=== PATIENT | male | born 1960 | race Caucasian/White ===

== ENCOUNTER → 2020-05-29 | Outpatient (REF) | payer BC | LOC: M SMT 12:40 | PROVIDERS: ATTEND Nurse Practitioner Family | DX: N39.0 Urinary tract infection, site not specified (principal) ==

== ENCOUNTER → 2020-06-18 | Outpatient (CLI) | payer BC ==
--- NOTE | 2020-06-18 10:56 | REPPI ---
INDICATION: ELEVATED PSA. COMPARISON: None. TECHNIQUE: Transrectal prostate ultrasound performed. FINDINGS: Prostate measures 4.1 x 3.1 x 5.0 cm, total volume 33.2 mL. Echotexture is diffusely heterogeneous. Tiny cysts and calcifications are noted. No focal mass is seen. Seminal vesicles are symmetrical. IMPRESSION: Ultrasound guidance was provided for Dr. Booker who performed ultrasound-guided biopsy of the prostate. <Electronically signed by Kashif Marie > 06/18/20 [id number]
== END ==
LOC: M SMT PRO 09:18
PROVIDERS: ATTEND Urology
DX: C61 Malignant neoplasm of prostate (principal)
CPT/HCPCS: 76872; G0416

== ENCOUNTER → 2020-07-09 | Outpatient (CLI) | payer BC ==
[~2020-07-09] MED LIST: ISOVUE-370 76% 100ML VIAL As Ordered ONE
--- NOTE | 2020-07-09 09:52 | REP ---
INDICATION: PROSTATE CANCER. COMPARISON: None. TECHNIQUE: CT of the abdomen and pelvis with IV contrast during the arterial phase of enhancement followed by CT of the abdomen, pelvis not included, during the delayed renal excretion phase of enhancement. FINDINGS: The visualized lung [place] are unremarkable. The liver is less dense than the spleen compatible with hepato steatosis. There are no focal hepatic masses or cysts. The gallbladder, pancreas and spleen are normal size and unremarkable. The adrenals are unremarkable. There is no hydronephrosis. There are no renal cysts or masses. No calculi. No perinephric stranding. The kidneys are unremarkable. The abdominal aorta is unremarkable. There is no periaortic lymph node enlargement or mass. There are scattered normal size nodes. The bowel and mesentery are unremarkable except for proximal sigmoid colon diverticulosis without diverticulitis. Pelvis: The appendix is unremarkable. The prostate and bladder are unremarkable by CT. The bladder is not distended. There is no free fluid. There is no pelvic adenopathy. There are no lytic, blastic or destructive skeletal changes. There is degenerative disc disease throughout the lumbar spine. IMPRESSION: There is no evidence of ascites, adenopathy or metastatic disease. Hepato steatosis. There is no hydronephrosis. The bladder is not distended. Otherwise, negative CT of the abdomen and pelvis. <Electronically signed by Kashif Rai > 07/09/20 [id number]
== END ==
LOC: M RAD 08:17
PROVIDERS: ATTEND Urology
DX: C61 Malignant neoplasm of prostate (principal); K76.0 Fatty (change of) liver, not elsewhere classified
CPT/HCPCS: 74177; Q9967

== ENCOUNTER → 2020-07-10 | Outpatient (CLI) | payer BC ==
--- NOTE | 2020-07-10 14:24 | REP ---
INDICATION: PROSTATE CA. COMPARISON: None. TECHNIQUE/RADIOTRACER AND DOSE: Following the intravenous administration of 21.3 mCi technetium 99 M MDP, patient's whole-body is imaged in various projections. FINDINGS: There is mild arthritic uptake at the shoulders bilaterally. There also appears to be mild to moderate arthritic uptake in the lower cervical spine. There is mild arthritic uptake at the base of the right 1st toe. There is no compelling scintigraphic evidence of osseous metastases. Renal and bladder activity are seen. IMPRESSION: No compelling scintigraphic evidence of osseous metastases. <Electronically signed by Kashif Marie > 07/10/20 [id number]
== END ==
LOC: M RAD 10:29
PROVIDERS: ATTEND Urology
DX: C61 Malignant neoplasm of prostate (principal)
CPT/HCPCS: 78306; A9503

== ENCOUNTER 2020-08-20 11:35 | Inpatient (IN) | payer BC ==
[~2020-08-20] VITALS: Ht 180.3 cm; Wt 109.2 kg
[~2020-08-20 11:35] MED LIST changes: +ALLE180T33 PO; +CO Q200C10 PO; +FISH1000 PO; +HEPARIN SOD (PORCINE) 5000UNITS/ML 1ML VIAL/SYRINGE SQ ONE; -ISOVUE-370 76% 100ML VIAL As Ordered ONE; +LIDOCAINE 2% 100MG/5ML SDV (FOR ANES.) As Ordered ONE; +LOSA50TA88 PO; +LR 1,000 ML IV ONE; +METOCLOPRAMIDE INJ 10MG/2ML VIAL (J2765 PER 1) As Ordered ONE; +MIDAZOLAM INJ 2MG/2ML VIAL (J2250 PER 1MG) As Ordered ONE; +MULTTAB86 PO; +ONDANSETRON 4MG/2ML VIAL As Ordered ONE; +ROCURONIUM BROMIDE 50 MG/5 ML VIAL As Ordered ONE; +TRIA37.53 PO; +[UNRECOGNIZED DRUG - REMARK] PO; +ceFAZolin SOD 2 GM in IV 1 EA IV ONE; +fentaNYL 100 MCG/2 ML INJECTION (J3010) As Ordered ONE; +propofoL 200 MG/20 ML VIAL As Ordered ONE
[2020-08-20] MEDS ORDERED: LIDOCAINE 1% SDV 30ML VIAL As Ordered ONE (12:08)
[2020-08-20] MEDS ORDERED: BUPIVACAINE HCL 0.25% 30ML VIAL As Ordered ONE (12:08)
[2020-08-20] MEDS ORDERED: fentaNYL 100 MCG/2 ML INJECTION (J3010) As Ordered ONE (12:59)
[2020-08-20] MEDS ORDERED: ROCURONIUM BROMIDE 50 MG/5 ML VIAL As Ordered ONE ×2 (14:10→15:08)
[2020-08-20] MEDS ORDERED: ACETAMINOPHEN 1000MG 100ML IV BTL (OFIRMEV) (J0131 PER 10MG) As Ordered ONE (14:10)
[2020-08-20] MEDS ORDERED: dexameTHASONE 4 MG/ML 1ML VIAL (J1100 PER 1MG) As Ordered ONE (14:10)
[2020-08-20] MEDS ORDERED: HYDROmorphone HCL 2 MG/ML 1ML VIAL (J1170) As Ordered ONE (14:11)
[2020-08-20] MEDS ORDERED: SUGAMMADEX SODIUM 500 MG/5 ML VIAL (BRIDION) As Ordered ONE (15:39)
[2020-08-20] MEDS ORDERED: ONDANSETRON 4MG/2ML VIAL As Ordered ONE (15:40)
[2020-08-20] MEDS ORDERED: ceFAZolin 2 GM/D5W 50 ML IV BAG (J0690 PER 500MG) As Ordered ONE (15:57)
[2020-08-20] MEDS ORDERED: MORPHINE 2 MG/ML 1ML VIAL (J2270) IV PRN ×2 (17:30→17:35)
[2020-08-20] MEDS ORDERED: ONDANSETRON 4MG/2ML VIAL IV PRN ×2 (17:30→17:35)
[2020-08-20] MEDS ORDERED: oxyCODONE 5MG TAB PO PRN (17:30)
[2020-08-20] MEDS ORDERED: LR 1,000 ML IV SCH (17:30)
[2020-08-20] MEDS ORDERED: NS 1,000 ML IV SCH (17:35)
[2020-08-20] MEDS ORDERED: PERCOCET 5MG/325MG TAB PO PRN ×2 (17:35)
[2020-08-20] MEDS: fentaNYL 100 MCG/2 ML INJECTION (J3010) IV PRN ×4 (17:42→18:11)
--- NOTE | 2020-08-20 17:52 | ROOPDOC ---
[facility] Report Of Operation Report of Operation DATE OF PROCEDURE: 08/20/20 PREPROCEDURE DIAGNOSES: Prostate Cancer. POSTPROCEDURE DIAGNOSES: Prostate Cancer. PROCEDURE: Robotic-assisted Laparoscopic Radical Prostatectomy with Bilateral Pelvic Lymph Node Dissection. SURGEON: Paige Gramajo MD MANAGER SERVICE DESK: Loretta Hauser NP ANESTHESIA: General. OPERATIVE INDICATIONS: This is a 60 year old male with intermediate risk clinical T1c [place] 4+3 prostate cancer, here today for the above procedure for treatment. DESCRIPTION OF PROCEDURE: The patient was brought to the operating room and general anesthesia was induced. Prophylactic antibiotics were infused. He was then placed in the supine position and prepped and draped in the usual sterile fashion. At this point, a Choi catheter was inserted into the bladder and the balloon was filled with 10 mL of sterile water. We then made a midline incision just above the umbilicus for an 8 mm port. A Veress needle was utilized to achieve pneumoperitoneum. Next, an 8 mm port was inserted into the incision and subsequently a camera was inserted. There were no injuries from the Veress needle or initial trocar placement. Then three robotic ports were placed in the usual configuration in line just below the level of the umbilicus. A 12 mm assistant account manager port was placed just lateral and at the level of the umbilicus. Once all the ports were placed, the robot was docked. Lysis of adhesions between the sigmoid colon and abdominal wall was then performed. Next, the bladder was then released from the anterior abdominal wall using electrocautery. Once the bladder was dropped, the fat overlying the prostate was cleared using electrocautery. The superficial dorsal vein was controlled with electrocautery. The endopelvic fascia was opened on both sides and the dorsal venous complex was cleared. Next, a #0 Vicryl [id number] stitch was placed around the dorsal venous complex. Once that was done, the bladder was opened and dissected away from the prostate. At this point, the prostate was lifted up. The vasa deferentia were identified in the midline. They were controlled with electrocautery and then transected. The seminal vesicles were also dissected off bilaterally. After carefully dissecting the prostate off the rectum using cold scissors, and ligating and transecting the pedicles, the prostate was only connected by the urethra. At this point, the dorsal venous complex was transected with electrocautery. The urethra was then opened and the catheter was withdrawn and the posterior urethra was transected, thus freeing the prostate. At this point, we checked for hemos tasis and it did appear very good. Next, we performed bilateral pelvic lymph node dissection. This was done in a standard fashion. The limits of dissection were the iliac vein proximally, the obturator nerve distally, the pelvic sidewall laterally, and the bladder medially. All lymphatic tissue within these limits was removed. I performed the same procedure on both the right and left sides. Hemostasis was then obtained. The lymphatic packets were then placed in separate Endo Catch bags for future retrieval. Once hemostasis was confirmed, I then moved on to perform the vesicourethral anastomosis. The vesicourethral anastomosis was performed in running fashion using a Quill stitch. Once this was done, the final #20-Portuguese Choi catheter was placed. The balloon was filled with 15 mL of sterile water. Upon completion of the vesicourethral anastomosis, it was tested by filling the bladder with sterile water. The anastomosis appeared to be watertight. At this point, the prostate and seminal vesicles were placed in an Endo Catch bag for future retrieval. The robot was then undocked. A Dusty fascial closure device was utilized to place a #0 Vicryl suture between the fascia of the 12 mm assistant account manager port. At this point, a Dominick- Suarez drain was brought in through the left robotic port skin site and the drain was positioned anterior to the bladder. The drain was secured to the skin with #2-0 Ethilon suture. Next, all the remaining ports were removed and there did not appear to be any bleeding from any of the port sites. The prostate, as well as the lymphatic packets were then extracted from the camera port site after the skin was extended. The fascia in this incision was then closed with a running #0 Vicryl stitch. The previously placed #0 Vicryl free ties through the assistant account manager port were then tied down and all incisions were irrigated. Last, all of the incisions were closed with running subcuticular #4-0 Monocryl sutures. Local anesthesia was applied. Dermabond was then applied to the incisions. This marked the conclusion of the procedure. The patient was then awakened from anesthesia and transported to the recovery room in stable condition. ESTIMATED BLOOD LOSS: 175 mL. COMPLICATIONS: None. SPECIMENS: Prostate and seminal vesicles, right pelvic lymph nodes, left pelvic lymph nodes. PLAN: The patient will be admitted to the hospital postoperatively, and he will likely be discharged home within the next 1-2 days. PAIGE GRAMAJO MD August 20, 2020 17:51
[2020-08-20 18:12] LABS: HEMATOCRIT 48.1 % (42.0-52.0); HEMOGLOBIN 16.1 g/dl (13.5-17.5); MEAN CORPUSCULAR HEMOGLOBIN 30.8 pg (27.0-33.0); MEAN CORPUSCULAR HGB CONC 33.5 g/dl (32.0-36.5); MEAN CORPUSCULAR VOLUME 92.1 fl (80.0-96.0); PLATELET COUNT, AUTOMATED 265 10^3/uL (150-450); RED BLOOD COUNT 5.22 10^6/uL (4.30-6.10); WHITE BLOOD COUNT 16.5 10^3/uL (4.0-10.0)
[2020-08-20 18:35] LABS: BLOOD UREA NITROGEN 20 MG/DL (7-18); CARBON DIOXIDE LEVEL 26 MEQ/L (21-32); CHLORIDE LEVEL 106 MEQ/L (98-107); CREATININE FOR GFR 1.29 MG/DL (0.70-1.30); GLOMERULAR FILTRATION RATE > 60.0 (>49); GLUCOSE, FASTING 183 MG/DL (70-100); POTASSIUM SERUM 3.9 MEQ/L (3.5-5.1); SODIUM LEVEL 139 MEQ/L (136-145)
[2020-08-20 18:45] VITALS: BP 131/79
[2020-08-20 19:15] VITALS: BP 145/88
[2020-08-20] MEDS ORDERED: LOSARTAN 50MG TABLET PO SCH (21:00)
[2020-08-20] MEDS ORDERED: FEXOFENADINE 60 MG TAB PO SCH (21:00)
[2020-08-20] MEDS: HEPARIN SOD (PORCINE) 5000UNITS/ML 1ML VIAL/SYRINGE SC SCH (22:08)
[2020-08-20 22:10] VITALS: BP 145/88
[2020-08-20] MEDS: DOCUSATE SODIUM 100MG CAPSULE PO SCH (22:10)
[2020-08-20] MEDS: ACETAMINOPHEN TAB 650MG DOSE (2X325MG) PO PRN (22:13)
[2020-08-20 22:30] VITALS: BP 139/82
[2020-08-21] MEDS: ceFAZolin SOD 1 GM in D5W MINI-BAG PLUS 50 ML IV SCH ×2 (00:27→08:17)
[2020-08-21 02:00] VITALS: BP 136/79
[2020-08-21] MEDS: HEPARIN SOD (PORCINE) 5000UNITS/ML 1ML VIAL/SYRINGE SC SCH ×2 (05:57→14:00)
[2020-08-21] MEDS: ACETAMINOPHEN TAB 650MG DOSE (2X325MG) PO PRN (05:57)
[2020-08-21 06:00] VITALS: BP 148/88
[2020-08-21 06:53] LABS: HEMATOCRIT 45.9 % (42.0-52.0); HEMOGLOBIN 15.4 g/dl (13.5-17.5); MEAN CORPUSCULAR HEMOGLOBIN 30.9 pg (27.0-33.0); MEAN CORPUSCULAR HGB CONC 33.6 g/dl (32.0-36.5); PLATELET COUNT, AUTOMATED 252 10^3/uL (150-450); RED BLOOD COUNT 4.99 10^6/uL (4.30-6.10); WHITE BLOOD COUNT 14.7 10^3/uL (4.0-10.0)
[2020-08-21 07:24] LABS: BLOOD UREA NITROGEN 17 MG/DL (7-18); CALCIUM LEVEL 9.1 MG/DL (8.8-10.2); CARBON DIOXIDE LEVEL 28 MEQ/L (21-32); CHLORIDE LEVEL 105 MEQ/L (98-107); GLOMERULAR FILTRATION RATE > 60.0 (>49); GLUCOSE, FASTING 132 MG/DL (70-100); SODIUM LEVEL 140 MEQ/L (136-145)
[2020-08-21] MEDS: DOCUSATE SODIUM 100MG CAPSULE PO SCH (08:17)
--- NOTE | 2020-08-21 08:56 | IPNPDOC ---
Subjective Review oF Systems Chief Complaint The patient is a 60-year-old male admitted with a reason for visit of Prostate Cancer. Events since Last Encounter No acute events o/n. Good pain control. No n/v. Has not ambulated yet. No f/c/ns. Objective Physical Examination General Exam: Alert, Cooperative, No Acute Distress ABDOMEN EXAM: Soft, Tenderness (minimal), Other (incisions clean/dry/intact; AMADOR draining serosanguinous fluid) Skin Exam: Nl turgor and temperature Neuro Exam: Normal Speech Psych Exam: Mental status NL, Mood NL Other physical findings catheter draining light pink urine Vital Signs/I&O Vital Signs Date Time Temp Pulse Resp B/P (MAP) Pulse Ox O2 Delivery O2 Flow Rate FiO2 08/21/20 06:00 98.9 92 18 148/88 (108) 95 Room Air 08/21/20 02:00 2.0 I&O- Last 24 Hours up to 6 AM 08/21/20 05:59 Intake Total 1900 ml Output Total 335 ml Balance 1565 ml Laboratory Data Labs 24H Laboratory Tests 2 08/20/20 17:44: Nucleated Red Blood Cells % (auto) 0.0, Anion Gap 7L, Glomerular Filtration Rate > 60.0, Calcium Level 9.0 08/21/20 06:18: Nucleated Red Blood Cells % (auto) 0.0, Anion Gap 7L, Glomerular Filtration Rate > 60.0, Calcium Level 9.1 CBC/BMP Laboratory Tests 08/20/20 17:44 08/21/20 06:18 Assessment/Plan Date Seen The patient was seen on 08/21/20. Patient Summary This is a 60 y/o M POD1 s/p RALP w/ BPLND. He is doing well. Labs are w/i normal limits. Good UOP. Normal AMADOR output. Plan/VTE VTE Prophylaxis Ordered?: Yes VTE Exclusion Mechanical Proph: N/A:VTE Prophy Ordered VTE Exclusion Pharmacological: N/A:VTE Prophy Ordered Plan/Urinary Catheter Urinary Catheter: Other Catheter: (catheter to stay in for 7-10 days) Plan - d/c IVF - percocet prn pain - ambulate - SCDs when in bed - SQH - incentive spirometry - strict I/Os - advance diet as tolerated - likely discharge home later today w/ catheter PAIGE GRAMAJO MD August 21, 2020 08:56
[2020-08-21] MEDS ORDERED: DYAZIDE 37.5/25 CAP (TRIAM/HCTZ) PO SCH (09:00)
[2020-08-21 10:00] VITALS: BP 147/88
[2020-08-21 14:55] VITALS: BP 147/91
[2020-08-21] MEDS ORDERED: DOK1CAP7 PO (15:48)
[2020-08-21] MEDS ORDERED: PERCOCET PO (15:48)
[2020-08-21] MEDS ORDERED: CIPR-249 PO (15:48)
--- NOTE | 2020-08-21 16:13 | DSES ---
DISCHARGE SUMMARY DATE OF ADMISSION: 08/20/2020 DATE OF DISCHARGE: 08/21/2020 ADMISSION DIAGNOSIS: Prostate cancer. DISCHARGE DIAGNOSIS: Prostate cancer. ADMITTING PHYSICIAN: Jose Booker MD. DISCHARGING PHYSICIAN: Jose Booker MD. PROCEDURE(S) PERFORMED: Robotic-assisted laparoscopic radical prostatectomy with bilateral pelvic lymph node dissection on 08/20/2020. HISTORY OF PRESENT ILLNESS: This is a 60-year-old male with prostate cancer who underwent the above listed treatment. He was admitted postoperatively. HOSPITAL COURSE: The patient was admitted to the hospital after undergoing the above listed procedure on 08/20/2020. His postoperative course was unremarkable. His lab work during his hospital stay was within normal limits. Specifically, his hemoglobin level was stable at 15.4 on postoperative day one. His serum creatinine was 0.9. He had excellent urine output throughout his stay and minimal out from his Dominick-Suarez drain. His diet was advanced on postoperative day one and he tolerated a regular diet without difficulty. He ambulated well without any difficulties. He had excellent pain control on oral pain medications. By the afternoon of postoperative day one, he was deemed ready for discharge home. His Dominick-Suarez drain was removed prior to discharge. He was discharged home with his catheter in place with the plan for him to follow-up in the urology clinic in approximately one week for catheter removal and to discuss pathology results.
== END 2020-08-21 17:20 | disposition home or self-care (01) | DRG 484 ==
LOC: M OR 11:35 → M MS5PR 18:45
PROVIDERS: ADMIT Urology; ATTEND Urology
PROC: 07BC4ZZ Excision of Pelvis Lymphatic, Percutaneous Endoscopic Approach (ICD-10-PCS; 2020-08-20)
PROC: 8E0W4CZ Robotic Assisted Procedure of Trunk Region, Percutaneous Endoscopic Approach (ICD-10-PCS; 2020-08-20)
PROC: 0VT04ZZ Resection of Prostate, Percutaneous Endoscopic Approach (ICD-10-PCS; principal; 2020-08-20 13:15)
DX: C61 Malignant neoplasm of prostate (principal)

== ENCOUNTER → 2022-05-01 | Outpatient (REF) | payer BC ==
[~2022-05-01] MED LIST changes: +CIPR-249 PO; +DOK1CAP4 PO; -HEPARIN SOD (PORCINE) 5000UNITS/ML 1ML VIAL/SYRINGE SQ ONE; -LIDOCAINE 2% 100MG/5ML SDV (FOR ANES.) As Ordered ONE; +LOSA50TA28 PO; -LOSA50TA88 PO; -LR 1,000 ML IV ONE; -METOCLOPRAMIDE INJ 10MG/2ML VIAL (J2765 PER 1) As Ordered ONE; -MIDAZOLAM INJ 2MG/2ML VIAL (J2250 PER 1MG) As Ordered ONE; -ONDANSETRON 4MG/2ML VIAL As Ordered ONE; +PERCOCET PO; -ROCURONIUM BROMIDE 50 MG/5 ML VIAL As Ordered ONE; -TRIA37.53 PO; +TRIA37.577 PO; -ceFAZolin SOD 2 GM in IV 1 EA IV ONE; -fentaNYL 100 MCG/2 ML INJECTION (J3010) As Ordered ONE; -propofoL 200 MG/20 ML VIAL As Ordered ONE
== END ==
LOC: M SFHCDERM 11:58
PROVIDERS: ATTEND Nurse Practitioner Family
DX: D18.09 Hemangioma of other sites (principal)